=== PATIENT | male | born 1970 | race Caucasian/White ===

== ENCOUNTER 2019-10-10 15:33 | Inpatient (IN) ==
--- NOTE | 2019-10-10 15:55 | Emergency Department Note ---
History of Present Illness General Chief complaint: Abdominal Pain Stated complaint: SHARP PAIN IN ABD Time Seen by Provider: 10/10/19 15:45 Source: patient Limitations: no limitations History of Present Illness Provider complaint: Abdominal pain Onset (ago): day(s) Location: abdomen Radiation: non-radiation Severity: moderate Pain Consistency: + intermittent Maximum Pain Intensity: 4 Quality: + sharp Exacerbated By: + none Associated symptoms: + other (Stools are small and blonde in color); no chest pain, no cough, no fever/chills, no headaches, no nausea/vomiting and no shortness of breath This is a 48-year-old male with no significant past medical history other than appendectomy 4 years ago presenting with abdominal pain. The pain started 4 days ago. He describes it as sharp. It is located in the right lower quadrant without radiation. No alleviating or worsening factors. He did have a hamburger about an hour ago. He states that he went to his doctor's office and had a CT scan of the abdomen pelvis earlier today which was abnormal he was sent here for further evaluation. He did not have any blood work but did have a urine analysis which did show blood in it. He denies any urinary symptoms, fever, vomiting, chest pain, shortness of breath, cough or cold symptoms or known exposure COVID-19. His bowel movements have been blonde in color and small. He denies any black or bloody stools. He denies any history of inflammatory bowel disease. Home Medications Home Medications Medication Instructions Recorded Confirmed Type sumatriptan succinate 50 mg PO DIRECTED PRN 10/10/19 10/10/19 History Allergies Allergy/AdvReac Type Severity Reaction Status Date / Time Penicillins Allergy Intermediate rash Verified 10/10/19 16:26 Past Med/Surg History Medical History Hernia, abdominal Migraine Surgical History History of appendectomy With simultaneous umbilical hernia repair History of umbilical hernia repair Family History Father Cancer throat CA Other Diabetes No pertinent family history in first degree relatives Denies family history of Coronary heart disease Stroke Social History (Updated 10/10/19 @ 17:56 by Elissa Goel PA-C) Smoking Status: Former smoker Years Smoked: 20; Cigarettes Per Day: 10; Number of Years Since Quit: 4; Second Hand Exposure: Yes; Do You Dip or Chew Tobacco: No; Hx Alcohol Use: No Hx Substance Use: No Preferred Language: Ecuadorean Communication Ability: Effective Master Brewer Required: No Beliefs That Will Affect Care: None marital status: Current Living Situation: Spouse Other Information That Helps Us Care for You: No Feels Safe at Home: Yes Safety Concerns: Feels Safe At This Time Review of Systems See HPI for pertinent positives & negatives. and A total of 10 systems reviewed and were otherwise negative Physical Exam Vital Signs Vital Signs - 24 hr 10/10/19 15:39 10/10/19 16:16 10/10/19 16:28 Temperature 37.0 C Temperature Source Oral Oral Pulse Rate 90 86 80 Pulse Rate [Left Apical] 81 Pulse Rate from SpO2 Sensor 82 81 Pulse Rhythm Regular Pulse Strength Normal Respiratory Rate 16 17 17 Respiratory Effort / Characteristics Non-Labored Spontaneous Non-Labored Respiratory Depth Normal Normal Respiratory Pattern Regular Blood Pressure 135/83 137/86 Blood Pressure [Left Arm] 137/86 Blood Pressure Mean 100 101 Blood Pressure Mean [Left Arm] 103 Blood Pressure Position Sitting Pulse Oximetry 95 97 97 Oxygen Delivery Method Room Air Room Air Sepsis Recent Fever Within 48 Hours No Sepsis New/Unexplained Change in Mental Status No Sepsis Action Taken by Nursing No Action Required 10/10/19 16:30 10/10/19 16:31 10/10/19 17:00 Temperature Temperature Source Pulse Rate 84 81 87 Pulse Rate [Left Apical] Pulse Rate from SpO2 Sensor 84 82 85 Pulse Rhythm Pulse Strength Respiratory Rate 20 16 Respiratory Effort / Characteristics Respiratory Depth Respiratory Pattern Blood Pressure 149/82 H 139/93 Blood Pressure [Left Arm] Blood Pressure Mean 101 115 Blood Pressure Mean [Left Arm] Blood Pressure Position Pulse Oximetry 96 96 96 Oxygen Delivery Method Sepsis Recent Fever Within 48 Hours Sepsis New/Unexplained Change in Mental Status Sepsis Action Taken by Nursing Constitutional: Vital signs reviewed. Eyes: Pupils are equal round reactive to light. Conjunctiva are noninjected. ENT: Pharynx is clear without erythema or exudate. Mucous membranes are moist. Neck supple without meningeal signs. Respiratory: Clear to auscultation bilaterally. Breath sounds are equal bilaterally. Cardiovascular: Regular rate and rhythm. No rubs or gallops. GI: Soft, nondistended with tenderness in the right lower quadrant. No guarding. Bowel sounds are present. Musculoskeletal: No peripheral edema. No lower extremity tenderness. Integumentary: No cyanosis. or jaundice. Neurological: The patient is awake and alert. No focal deficits. Psychiatric: Normal affect. Not anxious appearing. Course Administered Medications Lactated Ringer's (Lr) 1,000 mls @ 125 mls/hr IV .Q8H SARAN Stop: 11/09/19 18:31 Last Admin: 10/10/19 18:53 Dose: 125 mls/hr Documented by: [id number] Discontinued Medications Sodium Chloride (Nss 1000ml) 1,000 mls @ 125 mls/hr IV .Q8H SARAN Stop: 11/09/19 16:14 Last Infusion: 10/10/19 19:04 Dose: 0 mls/hr Documented by: [id number] Admin: 10/10/19 16:28 Dose: 125 mls/hr Documented by: [id number] Ciprofloxacin (Cipro / D5w) 400 mg in 200 mls @ 100 mls/hr IV NOW STA; Protocol Stop: 10/10/19 18:04 Last Infusion: 10/10/19 18:52 Dose: 0 mls/hr Documented by: [id number] Admin: 10/10/19 16:25 Dose: 100 mls/hr Documented by: [id number] Metronidazole (Flagyl) 500 mg in 100 mls @ 100 mls/hr IV NOW STA Stop: 10/10/19 17:04 Last Infusion: 10/10/19 18:19 Dose: 0 mls/hr Documented by: [id number] Admin: 10/10/19 16:20 Dose: 100 mls/hr Documented by: [id number] Medical Decision Making Differential Diagnosis Ileitis, ischemic colitis, inflammatory bowel disease, abscess, adhesions Medical Records Attestation: I reviewed the patient's medical records. I did perform a limited focused review of portions of the patient's old chart on the electronic medical record. The patient underwent appendectomy and repair of umbilical hernia in 2014. CT of the abdomen pelvis performed today at [facility] shows "pericecal inflammatory changes with tiny fluid collection and stranding in the right pericolic gutter. Findings may be compatible with typhlitis. There is linear dense material appearing within the cecum as well as along the right pericolic gutters compatible with the use of Endo/JORDAN at the time of December 13, 2014 appendectomy and simultaneous umbilical hernia repair. However currently there is inflammatory stranding surrounding the cecum. Tiny fluid collection immediately inferior to the cecal wall within the area of inflammation. As there are no prior studies for comparison findings are assumed to be new active inflammation. Mild stranding extends below the level of the iliac bone into the pelvis. Stomach, small bowel, other parts of the colon including ileocecal valve are otherwise unremarkable." Home Medications Current Medication List: was personally reviewed by me Laboratory Data Attestation: I reviewed the patient's lab results. Result diagrams: 10/10/19 15:50 10/10/19 15:50 Lab Results 10/10/19 10/10/19 10/10/19 Range/Units 15:50 15:50 15:50 WBC 7.88 (4.8-10.8) K/uL RBC 5.11 (4.7-6.1) M/uL Hgb 14.8 (14.0-18.0) g/dL Hct 42.5 (42-52) % MCV 83.2 (80-100) fL MCH 29.0 (25-34) pg MCHC 34.8 (32-36) g/dL RDW Std Deviation 40.6 (36.4-46.3) fL RDW Coeff of Pauly 13.4 (11.5-14.5) % Plt Count 183 (130-400) K/uL MPV 12.2 H (7.4-10.4) fL Immature Gran % (Auto) 0.3 % Neut % (Auto) 67.7 % Lymph % (Auto) 24.0 % [place] % (Auto) 6.1 % Eos % (Auto) 1.5 % Baso % (Auto) 0.4 % Neut # (Auto) 5.34 (1.4-6.5) K/uL Lymph # (Auto) 1.89 (1.2-3.4) K/uL [place] # (Auto) 0.48 (0.11-0.59) K/uL Eos # (Auto) 0.12 (0-0.5) K/uL Baso # (Auto) 0.03 (0-0.2) K/uL Immature Gran # (Auto) 0.02 (0.00-0.02) K/uL Sodium 137 (136-145) mmol/L Potassium 3.5 (3.5-5.1) mmol/L Chloride 105 (98-107) mmol/L Carbon Dioxide 24 (21-32) mmol/L Anion Gap 8.0 (3-11) BUN 13 (7-18) mg/dl Creatinine 0.94 (0.6-1.4) mg/dl Est Cr Clr Drug Dosing 118.0 ml/min Est GFR ( Amer) 109.1 Est GFR (Non-Af Amer) 94.2 BUN/Creatinine Ratio 13.7 (10-20) Glucose 123 H (70-99) mg/dl Lactate 1.3 (0.4-2.0) mmol/L Calcium 8.8 (8.5-10.1) mg/dl Total Bilirubin 0.8 (0.2-1) mg/dl AST 17 (15-37) U/L ALT 31 (12-78) U/L Alkaline Phosphatase 118 H (45-117) U/L Total Protein 7.7 (6.4-8.2) gm/dl Albumin 3.8 (3.4-5.0) gm/dl Globulin 3.9 (2.5-4.0) gm/dl Albumin/Globulin Ratio 1.0 (0.9-2) Lipase 93 (73-393) U/L Blood Pressure Blood Pressure Findings: Elevated blood pressure Blood Pressure Disposition: Referred to patients primary care provider [facility] Narrative I did evaluate the patient as noted above. IV access was established. The patient was made n.p.o. I did treat him with normal saline IV and was given IV Cipro and Flagyl. I did order and review the patient's blood work as noted in the electronic medical record. His white count is not elevated. He is not neutropenic. He is not anemic. Electrolytes are unremarkable. Lactic acid is not elevated. I did discuss the case with Dr. Everett Garcia of surgery. He did not feel any surgical intervention was indicated at this time. He agreed with my plan for hospitalization and surgical consultation within the hospital. I did discuss the test results with the patient and his . I did discuss the case with the hospitalist and lead case manager. Impression & Plan Colitis Discharge Plan Visit Data Chief Complaint: Abdominal Pain Stated Complaint: SHARP PAIN IN ABD ED Provider: Praveen Storm Discharge Problem: Colitis Patient Disposition: Admitted As Inpatient Discharge Instructions Interventions: ED Discharge Assessment Last Done: 10/10/19 18:04
[2019-10-10] MEDS ORDERED: CIPROFLOXACIN / D5W 400 MG/200 ML BAG IV STA (16:05)
[2019-10-10] MEDS ORDERED: metroNIDAZOLE 500 MG/100 ML BAG IV STA (16:05)
[2019-10-10 16:06] LABS: Basophils # (auto) 0.03 K/uL (0-0.2); Basophils % (auto) 0.4 %; Eosinophils # (auto) 0.12 K/uL (0-0.5); Eosinophils % (auto) 1.5 %; Hematocrit (blood only) 42.5 % (42-52); Hemoglobin 14.8 g/dL (14.0-18.0); Immature Granulocytes # (auto) 0.02 K/uL (0.00-0.02); Immature Granulocytes % (auto) 0.3 %; Lymphocytes # (auto) 1.89 K/uL (1.2-3.4); Mean Corpuscular Hgb Conc 34.8 g/dL (32-36); Mean Corpuscular Volume 83.2 fL (80-100); Mean Platelet Volume 12.2 fL (7.4-10.4); Monocytes # (auto) 0.48 K/uL (0.11-0.59); Monocytes % (auto) 6.1 %; Neutrophils # (auto) 5.34 K/uL (1.4-6.5); Neutrophils % (auto) 67.7 %; Platelet Count 183 K/uL (130-400); RDW Coefficient of Variation 13.4 % (11.5-14.5); RDW Standard Deviation 40.6 fL (36.4-46.3); Red Blood Count 5.11 M/uL (4.7-6.1); White Blood Count 7.88 K/uL (4.8-10.8)
[2019-10-10] MEDS ORDERED: SODIUM CHLORIDE 0.9% 1000ML 1,000 ML IV SCH (16:15)
[2019-10-10 16:26] LABS: Albumin Level 3.8 gm/dl (3.4-5.0); BUN Creatinine Ratio 13.7 (10-20); Calcium 8.8 mg/dl (8.5-10.1); Est GFR (African American) 109.1; Est GFR (Non-African American) 94.2; Potassium 3.5 mmol/L (3.5-5.1)
[2019-10-10 16:28] LABS: Bilirubin,Total 0.8 mg/dl (0.2-1); Globulin 3.9 gm/dl (2.5-4.0); Total Protein 7.7 gm/dl (6.4-8.2)
--- NOTE | 2019-10-10 18:02 | History & Physical Report ---
Date of Service October 10, 2019 Assessment & Plan (1) Colitis: Mr. Harrington is a 48 year old M who has a significant PMH of migraines who presents to ED 2/2 to RLQ Abdominal pain x [address] Scan abd/pelvis done outpt reveals pericecal inflammatory changes with tiny fluid collection and stranding in the right pericolic gutter. Prior hx of appendectomy with simultaneous umbilical hernia repair in 2015. Denies prior history of autoimmune disease, cancer. No prior history of colonoscopy. C/o RLQ abd pain, but otherwise no fever, n/v/d. Does not meet criteria for Sepsis. LA WNL. Admit to medical Continue IV antibiotics with ciprofloxacin 400 every 12 and Flagyl 500 IV every 8h Clear liquid diet Consult general surgery -ED physician Dr. Storm spoke with Dr. Atkins who recommended conservative management with IV antibiotics Antiemetics and analgesia ordered (2) DVT prophylaxis: Lovenox SQ until ambulating adequately Disposition: admit to med/surg Follow up: PCP Dr. Rivas upon discharge Pt was seen and examined in collaboration with Dr. Parks, please see addendum History of Present Illness Chief Complaint: RLQ Abd Pain x 4 days. Primary Care Provider: Chuck Rivas MD This is a 48 year old M who has a significant PMH of migraines who presents to ED 2/2 to RLQ Abdominal pain x 4 days. Pain is located RLQ with radiation to RUQ, waxes and wanes, improved with rest, worse with movement, pain 3/10, tried nothing OTC to improve pain. Had 1 episode of diarrhea 2 days ago, but otherwise bowel habits have been normal. Typically has BM 3x daily before noon. Denies any f/c/s, dizziness, lightheaded, chest pain, syncope, cough, n/v, dysuria, increased urg/freq with urination. Has never had a colonoscopy. Was suppose to get cologuard in the mail, but has not yet received it. Denies hx of autoimmune disease. 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 Denies any recent tattoos. No hx of cancer. FH of +ca, throat CA in Father 2/2 to smoking. He use to smoke 1/2 ppd x 20 years and rare ETOH use. He was seen and evaluated in clinic today by Dr. Daniel and underwent CT abd/pelvis which revealed pericecal inflammatory changes with tiny fluid collection and stranding of the right colic gutter. Due to results he was referred to ED for surgical eval and IV antibiotics. ED provider discussed case with Dr. Atkins who recommended conservative management at this time with IV antibiotics. In ED pt remained hemodynamically stable. CBC and CMP were generally unremarkable. Lactic acid was 1.3. In ED he received IV antibiotics ciprofloxacin and Flagyl along with IVF. Allergies Allergy/AdvReac Type Severity Reaction Status Date / Time Penicillins Allergy Intermediate rash Verified 10/10/19 16:26 Home Medications Home Medications Medication Instructions Recorded Confirmed Type sumatriptan succinate 50 mg PO DIRECTED PRN 10/10/19 10/10/19 History Past Med/Surg History Medical History Hernia, abdominal Migraine Surgical History History of appendectomy With simultaneous umbilical hernia repair History of umbilical hernia repair Family History Father Cancer throat CA Other Diabetes No pertinent family history in first degree relatives Denies family history of Coronary heart disease Stroke Social History (Updated 10/10/19 @ 17:56 by Elissa Goel PA-C) Smoking Status: Former smoker Years Smoked: 20; Cigarettes Per Day: 10; Number of Years Since Quit: 4; Second Hand Exposure: Yes; Hx Alcohol Use: Yes Alcohol type: beer Alcohol Intake Frequency: Monthly or Less Hx Substance Use: No Preferred Language: Azeri marital status: Current Living Situation: Spouse Feels Safe at Home: Yes Review of Systems Review of Systems: All systems reviewed & are unremarkable except as noted in HPI & below Physical Exam Physical Exam: Constitutional: WD/WN, vitals as above, NAD, sitting up in bed, pleasant, conversing easily Head: Normocephalic, Atraumatic Eyes: PERRL, conjunctivae normal, anicteric sclerae ENMT: external ear and nose normal, oropharynx normal Neck: trachea midline, no thyromegaly normal visual inspection Respiratory: normal respiratory effort, lungs clear to auscultation, no wheeze, rales, rhonchi. Normal insp/exp effort, no accessory muscle use Cardiovascular: RRR, no murmur, no edema Vessels: no JVD or carotid bruit Chest: normal inspection of chest Abdomen: normal bowel sounds, soft, tender to palpation to right lower quadrant, no rebound, no guarding, no rigidity, ND, no hepatosplenomegaly Musculoskeletal: no cyanosis or clubbing, extremities motor strength 5/5 Skin: Multiple tattoos to bilateral upper extremities and posterior thorax, no rashes, warm and dry normal turgor Neurologic: PERRL, EOMI, accommodation nl, no face palsy, no dysarthria CN's II-XI intact bilaterally and moves all extremities Psychiatric: A+Ox3, euthymic affect Lymphatic: no cervical or axillary lymphadenopathy : deferred Results & Data Results & Data ([facility]) Vital Signs (Past 12 Hours) Vital Signs Temp Pulse Pulse Resp BP BP Pulse Ox 10/10/19 17:31 96 10/10/19 17:30 141/92 H 98 10/10/19 17:00 87 139/93 96 10/10/19 16:31 81 16 96 10/10/19 16:30 84 20 149/82 H 96 10/10/19 16:28 80 81 17 137/86 97 10/10/19 16:16 86 17 137/86 97 10/10/19 15:39 37.0 C 90 16 135/83 95 Laboratory Results Short CBC 10/10/19 Range/Units 15:50 WBC 7.88 (4.8-10.8) K/uL Hgb 14.8 (14.0-18.0) g/dL Hct 42.5 (42-52) % Plt Count 183 (130-400) K/uL BMP 10/10/19 15:50 Sodium 137 Potassium 3.5 Chloride 105 Carbon Dioxide 24 BUN 13 Creatinine 0.94 Glucose 123 H Calcium 8.8 Liver Function 10/10/19 Range/Units 15:50 Total Bilirubin 0.8 (0.2-1) mg/dl AST 17 (15-37) U/L ALT 31 (12-78) U/L Alkaline Phosphatase 118 H (45-117) U/L Albumin 3.8 (3.4-5.0) gm/dl Diagnostic Findings CT A/P: EXAM EXAM: CT ABD/PELVIS WO IV/ORAL CONTRAST DATE and TIME: 10/10/2019 2:00 pm HISTORY CLINICAL INFORMATION: right abd pain , kidney stone. History of laparoscopic appendectomy on 12/05/2014. Increasing pain and tenderness in right upper and lower quadrants. TECHNIQUE Oral Contrast: Oral contrast was not administered. IV Contrast: IV Contrast used COMPARISON No comparisons FINDINGS LOWER CHEST: HEART(visualized): Unremarkable LUNG BASES: Linear atelectasis in the lung bases. Bandlike atelectasis in the right middle lobe. ABDOMEN/PELVIS: LINES AND DEVICES: None LIVER: Unremarkable BILE DUCTS: Unremarkable GALLBLADDER: Unremarkable PANCREAS: Unremarkable SPLEEN: Unremarkable ADRENALS: Unremarkable KIDNEYS/URETERS: Unremarkable BLADDER: Unremarkable BOWEL: There is linear dense material appearing within the cecum as well as along the right pericolic gutter compatible with the use of Endo-JORDAN at the time of the December 13, 2014 appendectomy and simultaneous umbilical hernia repair. However, currently there is inflammatory stranding surrounding the cecum. Tiny fluid collection immediately inferior to the cecal wall within the area of inflammation. As there are no prior studies for comparison (appendectomy was performed at [facility]), findings are assumed to be new active inflammation. Mild stranding extends below the level of the iliac bone into the pelvis. Stomach, small bowel, and other parts of the colon including ileocecal valve are otherwise unremarkable. LYMPH NODES: Unremarkable VESSELS: Scattered calcific aortic vascular disease. REPRODUCTIVE ORGANS: Unremarkable PERITONEUM/RETROPERITONEUM: Stranding in the right pericolic gutter as above. ABDOMINAL WALL/SOFT TISSUES: Unremarkable BONES: Sclerotic sacroiliac joints. Schmorl's nodes. Minor endplate spurring. IMPRESSION IMPRESSION 1. Pericecal inflammatory changes with tiny fluid collection and stranding in the right pericolic gutter. Finding may be compatible with typhlitis. If outside CT abdomen and pelvis performed at the time of the 2015 appendectomy, it may be useful for comparison purposes. Surgical consult recommended. Medications Administered Sodium Chloride (Nss 1000ml) 1,000 mls @ 125 mls/hr IV .Q8H SARAN Stop: 11/09/19 16:14 Last Admin: 10/10/19 16:28 Dose: 125 mls/hr Documented by: [id number] Ciprofloxacin (Cipro / D5w) 400 mg in 200 mls @ 100 mls/hr IV NOW STA; Protocol Stop: 10/10/19 18:04 Last Admin: 10/10/19 16:25 Dose: 100 mls/hr Documented by: [id number] Discontinued Medications Metronidazole (Flagyl) 500 mg in 100 mls @ 100 mls/hr IV NOW STA Stop: 10/10/19 17:04 Last Admin: 10/10/19 16:20 Dose: 100 mls/hr Documented by: [id number] Code Status & VTE Plan Code Status Full Code VTE Prophylaxis Plan VTE Prophylaxis will be ordered: Yes Supervising Physician Co-Signing Physician Notes Attending addendum The patient was seen and examined in emergency room He has been complaining of right lower quadrant abdominal pain for the last 4 days The pain is worse with movement He does not have any progression of bowel habit with it, does not have any problem with urine and denies any fever and chills No abdominal distention and no nausea and or vomiting On examination Hemodynamically stable, afebrile Extremity of the abdomen-minimally distended, soft, tender in the right lower quadrant with guarding, rigidity and rebound tenderness Chest-clear His admission labs and imaging studies reviewed Has nonspecific inflammation/infection involving the cecum without any bowel obstruction and/or abscess formation Started with intravenous Cipro and Flagyl Surgery consulted Agree with assessment plan as outlined above by Jacy Parks
[2019-10-10] MEDS ORDERED: ACETAMINOPHEN 325 MG TAB PO PRN (18:32)
[2019-10-10] MEDS ORDERED: ONDANSETRON INJ 2 MG/ML 2 ML VIAL IV PRN (18:32)
[2019-10-10] MEDS: LACTATED RINGER'S 1,000 ML IV SCH (18:53)
--- NOTE | 2019-10-10 19:53 | Surgery Consultation ---
Date of Consultation October 10, 2019 Asked to see patient for evaluation of right lower quadrant pain This gentleman approximately 4 days ago experience right lower quadrant pain that time was incapacitating with one associated bout of diarrhea nonbloody the pain intensified to yesterday was quite significant although today it was progressively getting better was seen and had a CT scan of the abdomen which showed my conversation with Dr. Sami lorenzo The patient has had a previous appendectomy Denies any family history of gastrointestinal problem and he himself denies any problem other than what developed a few days ago What actually triggered this pain the patient does not recall he stated he awoke with the pain and denies any strain or trauma Assessment & Plan (1) Colitis: At this time I would recommend the patient to be kept on antibiotic possibly discharge him on Cipro and Flagyl tomorrow as gastrology to see him on this admission and they will decide whether or not to proceed with colonoscopy at this time or evaluate him later on In summary at this time the patient does not have an acute abdomen we will try to see the actual CT scan that was done at [facility] and we have no images of this at this time Present on Admission?: Yes History of Present Illness Attending Physician: Honey Parks MD Allergies Allergy/AdvReac Type Severity Reaction Status Date / Time Penicillins Allergy Intermediate rash Verified 10/10/19 16:26 Home Medications Home Medications Medication Instructions Recorded Confirmed Type sumatriptan succinate 50 mg PO DIRECTED PRN 10/10/19 10/10/19 History Patient History Medical History Hernia, abdominal Migraine Surgical History History of appendectomy With simultaneous umbilical hernia repair History of umbilical hernia repair Family History Father Cancer throat CA Other Diabetes No pertinent family history in first degree relatives Denies family history of Coronary heart disease Stroke Social History (Updated 10/10/19 @ 17:56 by Elissa Goel PA-C) Smoking Status: Former smoker Years Smoked: 20; Cigarettes Per Day: 10; Number of Years Since Quit: 4; Second Hand Exposure: Yes; Do You Dip or Chew Tobacco: No; Hx Alcohol Use: No Hx Substance Use: No Preferred Language: Vietnamese Communication Ability: Effective Plant Sciences Professor Required: No Beliefs That Will Affect Care: None marital status: Current Living Situation: Spouse Other Information That Helps Us Care for You: No Feels Safe at Home: Yes Safety Concerns: Feels Safe At This Time Physical Exam Physical Exam: Patient is alert coherent no distress tolerated his diet without any problem and actually feels quite well The abdomen soft nondistended nontender except a very localized point almost like McBurney's point but is very superficial and sensitive abdominal wall there is no hernia there from previous appendectomy since he has had a laparoscopic approach Results & Data ([facility]) Vital Signs (Past 12 Hours) Vital Signs Temp Pulse Pulse Resp BP BP Pulse Ox 10/10/19 18:36 36.5 C 76 16 134/82 96 10/10/19 17:31 96 10/10/19 17:30 141/92 H 98 10/10/19 17:00 87 139/93 96 10/10/19 16:31 81 16 96 10/10/19 16:30 84 20 149/82 H 96 10/10/19 16:28 80 81 17 137/86 97 10/10/19 16:16 86 17 137/86 97 10/10/19 15:39 37.0 C 90 16 135/83 95 PG Care Time/CCT Total # of Minutes Spent Total Time Spent with Patient: Total time spent is greater than 50% in coordination of care (as documented) at patient's floor/unit and/or counseling patient: Coding Level of Care Code 48682 Inpt Consult Level 4 Diagnoses Colitis K52.9
[2019-10-10] MEDS ORDERED: ENOXAPARIN INJ 40 MG/0.4 ML SYR SQ SCH (21:00)
[2019-10-10] MEDS: metroNIDAZOLE 500 MG/100 ML BAG IV SCH (23:38)
[2019-10-11] MEDS: LACTATED RINGER'S 1,000 ML IV SCH ×2 (03:00→11:17)
[2019-10-11] MEDS ORDERED: CIPROFLOXACIN / D5W 400 MG/200 ML BAG IV SCH (04:00)
[2019-10-11 07:49] LABS: Basophils # (auto) 0.05 K/uL (0-0.2); Basophils % (auto) 0.8 %; Eosinophils # (auto) 0.15 K/uL (0-0.5); Eosinophils % (auto) 2.5 %; Hematocrit (blood only) 41.6 % (42-52); Hemoglobin 14.3 g/dL (14.0-18.0); Immature Granulocytes # (auto) 0.01 K/uL (0.00-0.02); Immature Granulocytes % (auto) 0.2 %; Mean Corpuscular Hemoglobin 29.1 pg (25-34); Mean Corpuscular Hgb Conc 34.4 g/dL (32-36); Mean Corpuscular Volume 84.7 fL (80-100); Mean Platelet Volume 12.2 fL (7.4-10.4); Monocytes # (auto) 0.59 K/uL (0.11-0.59); Monocytes % (auto) 9.9 %; Neutrophils # (auto) 3.53 K/uL (1.4-6.5); Neutrophils % (auto) 59.6 %; Platelet Count 172 K/uL (130-400); RDW Coefficient of Variation 13.4 % (11.5-14.5); RDW Standard Deviation 41.7 fL (36.4-46.3); Red Blood Count 4.91 M/uL (4.7-6.1); White Blood Count 5.93 K/uL (4.8-10.8)
[2019-10-11] MEDS: metroNIDAZOLE 500 MG/100 ML BAG IV SCH (08:07)
[2019-10-11 08:15] LABS: Albumin Level 3.1 gm/dl (3.4-5.0); BUN Creatinine Ratio 9.9 (10-20); Calcium 8.8 mg/dl (8.5-10.1); Creatinine Clr Calc Pharmacy 114.4 ml/min; Est GFR (African American) 105.1; Est GFR (Non-African American) 90.7; Potassium 3.9 mmol/L (3.5-5.1)
[2019-10-11 08:18] LABS: Albumin Globulin Ratio 0.9 (0.9-2); Bilirubin,Total 0.9 mg/dl (0.2-1); Globulin 3.5 gm/dl (2.5-4.0); Total Protein 6.6 gm/dl (6.4-8.2)
--- NOTE | 2019-10-11 10:59 | Surgery Progress Note ---
Date of Service October 11, 2019 Assessment & Plan (1) Colitis: Patient here with colitis WBC 5.9 and patient afebrile Denies further bouts of diarrhea Still with some ttp in RLQ region Okay from our standpoint to complete a course of abx; can dispo on orals Would consider GI consultation to see if they would perform colonoscopy as inpt or outpt We have no plans for surgical intervention Pt seen and examined with Dr. Atkins Admission and Anticipated Discharge Date Admission Date: October 10, 2019 Subjective Patient states he is feeling good. Says each day that passes he is feeling better. Denies diarrhea. Physical Exam Physical Exam: awake/alert Gastrointestinal (Abdomen): Percussion/Palpation: + abdomen tender (ttp RLQ) and abdomen soft Results & Data ([facility]) Vital Signs (Past 12 Hours) Vital Signs Temp Pulse Resp BP Pulse Ox 10/11/19 07:27 36.6 C 63 18 119/76 98 10/10/19 23:06 36.7 C 69 20 134/80 95 PG Care Time/CCT Total # of Minutes Spent Total Time Spent with Patient: Total time spent is greater than 50% in coordination of care (as documented) at patient's floor/unit and/or counseling patient: Coding Level of Care Code 01489 Subseq Hosp Care Lvl 1 Diagnoses Colitis K52.9
--- NOTE | 2019-10-11 14:12 | Hospitalist Progress Note ---
Date of Service October 11, 2019 Assessment & Plan (1) Colitis: Mr. Harrington is a 48 year old M who has a significant PMH of migraines who presents to ED 2/2 to RLQ Abdominal pain x 4 days. Has nonspecific colitis involving pericecal area without any signs of obstruction and/or bleeding Appreciate surgery input and recommendation We will get a stool for C. difficile and culture Clinically a lot better today We will start oral Cipro and Flagyl and advance diet as tolerated Discussed with the GI service Will need colonoscopy as an outpatient after about 4 to 6 weeks If he has been feeling better this afternoon will be discharged home Imaging studies CT Scan abd/pelvis done outpt reveals pericecal inflammatory changes with tiny fluid collection and stranding in the right pericolic gutter. Prior hx of appendectomy with simultaneous umbilical hernia repair in 2014. Denies prior history of autoimmune disease, cancer. No prior history of colonoscopy. C/o RLQ abd pain, but otherwise no fever, n/v/d. Does not meet criteria for Sepsis. LA WNL. (2) DVT prophylaxis: Lovenox SQ until ambulating adequately Disposition: admit to med/surg Follow up: PCP Dr. Rivas upon discharge Admission and Anticipated Discharge Date Admission Date: October 10, 2019 Subjective 10/11/2019 He has been feeling a lot better today His pain in the right lower quadrant has decreased Denies any abdominal distention, fever, nausea and or vomiting Has been tolerating clears and will advance as tolerated Advised to ambulate more Review of Systems Review of Systems: All systems reviewed and are unremarkable except as noted below Gastrointestinal: + abdominal pain (Very minimal in right lower quadrant); no bloating, no nausea and no vomiting Physical Exam Physical Exam: Lying in bed comfortably Constitutional: well developed and well nourished; no acute distress and not ill appearing Eyes: PERRL, conjunctivae normal, anicteric sclerae ENMT: external ear and nose normal, oropharynx normal Neck: trachea midline, no thyromegaly Respiratory: normal respiratory effort; no respiratory distress Auscultation: lungs clear to auscultation bilaterally Cardiovascular: Rate/Rhythm: regular rate and regular rhythm Heart Sounds: no murmur Gastrointestinal (Abdomen): Inspection/Auscultation: abdomen normal to inspection and normal bowel sounds; abdomen not distended Percussion/Palpation: + abdomen tender (Minimally tender right lower quadrant wi thout guarding and/or rigidity) Musculoskeletal: No acute arthritis involving any joints Lymphatic: no cervical or axillary lymphadenopathy Results & Data Results & Data ([facility]) Vital Signs (Past 12 Hours) Vital Signs Temp Pulse Resp BP Pulse Ox 10/11/19 07:27 36.6 C 63 18 119/76 98 Laboratory Results Short CBC 10/10/19 10/11/19 Range/Units 15:50 07:28 WBC 7.88 5.93 (4.8-10.8) K/uL Hgb 14.8 14.3 (14.0-18.0) g/dL Hct 42.5 41.6 L (42-52) % Plt Count 183 172 (130-400) K/uL BMP 10/10/19 10/11/19 15:50 07:28 Sodium 137 139 Potassium 3.5 3.9 Chloride 105 104 Carbon Dioxide 24 29 BUN 13 10 Creatinine 0.94 0.97 Glucose 123 H 112 H Calcium 8.8 8.8 Liver Function 10/10/19 10/11/19 Range/Units 15:50 07:28 Total Bilirubin 0.8 0.9 (0.2-1) mg/dl AST 17 16 (15-37) U/L ALT 31 25 (12-78) U/L Alkaline Phosphatase 118 H 103 (45-117) U/L Albumin 3.8 3.1 L (3.4-5.0) gm/dl Medications Administered Current Inpatient Medications Acetaminophen (Acetaminophen 325 Mg Tab) 650 mg PO Q4H PRN PRN Reason: pain/fever Stop: 11/09/19 18:31 Ciprofloxacin (Ciprofloxacin 500 Mg Tab) 500 mg PO BID [facility]; Protocol Stop: 10/20/19 20:59 Enoxaparin Sodium (Enoxaparin Inj 40 Mg/0.4 Ml Syr) 40 mg SQ Q24H [facility] Stop: 11/09/19 20:59 Last Admin: 10/10/19 20:43 Dose: Not Given Documented by: Lactated Ringer's (Lr) 1,000 mls @ 125 mls/hr IV .Q8H [facility] Stop: 11/09/19 18:31 Last Admin: 10/11/19 11:17 Dose: 125 mls/hr Documented by: Metronidazole (Metronidazole 500 Mg Tab) 500 mg PO BID [facility]; Protocol Stop: 09/03/20 20:59 Ondansetron HCl (Ondansetron Inj 2 Mg/Ml 2 Ml Vial) 4 mg IV Q6H PRN PRN Reason: Nausea Stop: 11/09/19 18:31
[2019-10-11] MEDS ORDERED: CIPROFLOXACIN 500 MG TAB PO SCH (18:00)
--- NOTE | 2019-10-11 18:05 | Discharge Summary ---
Date of Service October 11, 2019 Admission HPI Per Admitting Provider This is a 48 year old M who has a significant PMH of migraines who presents to ED 2/2 to RLQ Abdominal pain x 4 days. Pain is located RLQ with radiation to RUQ, waxes and wanes, improved with rest, worse with movement, pain 3/10, tried nothing OTC to improve pain. Had 1 episode of diarrhea 2 days ago, but otherwise bowel habits have been normal. Typically has BM 3x daily before noon. Denies any f/c/s, dizziness, lightheaded, chest pain, syncope, cough, n/v, dysuria, increased urg/freq with urination. Has never had a colonoscopy. Was suppose to get cologuard in the mail, but has not yet received it. Denies hx of autoimmune disease. 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 Denies any recent tattoos. No hx of cancer. FH of +ca, throat CA in Father 2/2 to smoking. He use to smoke 1/2 ppd x 20 years and rare ETOH use. He was seen and evaluated in clinic today by Dr. Sanchez and underwent CT abd/pelvis which revealed pericecal inflammatory changes with tiny fluid collection and stranding of the right colic gutter. Due to results he was referred to ED for surgical eval and IV antibiotics. ED provider discussed case with Dr. Atkins who recommended conservative management at this time with IV antibiotics. In ED pt remained hemodynamically stable. CBC and CMP were generally unremarkable. Lactic acid was 1.3. In ED he received IV antibiotics ciprofloxacin and Flagyl along with IVF. Admission Exam Per Admitting Provider Physical Exam: Constitutional: WD/WN, vitals as above, NAD, sitting up in bed, pleasant, conversing easily Head: Normocephalic, Atraumatic Eyes: PERRL, conjunctivae normal, anicteric sclerae ENMT: external ear and nose normal, oropharynx normal Neck: trachea midline, no thyromegaly normal visual inspection Respiratory: normal respiratory effort, lungs clear to auscultation, no wheeze, rales, rhonchi. Normal insp/exp effort, no accessory muscle use Cardiovascular: RRR, no murmur, no edema Vessels: no JVD or carotid bruit Chest: normal inspection of chest Abdomen: normal bowel sounds, soft, tender to palpation to right lower quadrant, no rebound, no guarding, no rigidity, ND, no hepatosplenomegaly Musculoskeletal: no cyanosis or clubbing, extremities motor strength 5/5 Skin: Multiple tattoos to bilateral upper extremities and posterior thorax, no rashes, warm and dry normal turgor Neurologic: PERRL, EOMI, accommodation nl, no face palsy, no dysarthria CN's II-XI intact bilaterally and moves all extremities Psychiatric: A+Ox3, euthymic affect Lymphatic: no cervical or axillary lymphadenopathy : deferred Principal Diagnosis Pericecal nonspecific colitis Discharge Exam Constitutional well developed and well nourished; no acute distress and not ill appearing Eyes PERRL, conjunctivae normal, anicteric sclerae ENMT external ear and nose normal, oropharynx normal Neck trachea midline, no thyromegaly Respiratory normal respiratory effort; no respiratory distress Auscultation: lungs clear to auscultation bilaterally Cardiovascular Rate/Rhythm: regular rate and regular rhythm Heart Sounds: no murmur Gastrointestinal (Abdomen) Inspection/Auscultation: abdomen normal to inspection and normal bowel sounds; abdomen not distended Percussion/Palpation: + abdomen tender (Minimally tender right lower quadrant without guarding and/or rigidity) Lymphatic no cervical or axillary lymphadenopathy Discharge Data Allergies Allergy/AdvReac Type Severity Reaction Status Date / Time Penicillins Allergy Intermediate rash Verified 10/10/19 16:26 Consultations 10/10/19 17:07 ED Decision to Admit Stat 10/10/19 17:17 Consult General Surgery Routine Total Time Total Time Spent Total Time Spent (In Minutes): 35 minutes Total Time Includes: Examination of the Patient, Discharge Planning, Medication Reconciliation and Communication With Other Providers Discharge Plan Discharge Items Patient Disposition: Home - Self-Care Reason For Visit: PERICECAL INFLAMMATORY CHANGES Discharge Diagnosis: Pericecal nonspecific colitis Condition on Discharge: Good Activity: Resume your previous activity Non-emergency contact: Primary Care Provider Call non-emergency contact if: you have any medication questions and your symptoms worsen Follow-up/Referrals: Chuck Rivas MD [Primary Care Provider] - Diet: Regular Addtl Attending Provider Instructions: Drink more fluid Pending Studies at Discharge: No Stand-Alone Forms: My hereO, Smoking Cessation Medications and DC Order Prescriptions: New ciprofloxacin HCl 500 mg Tablet 500 mg PO BID Qty: 16 RF: 0 metronidazole 500 mg Tablet 500 mg PO BID Qty: 16 RF: 0 Lactinex 1 million cell tablet,chewable 1 tab PO BID Qty: 30 RF: 0 Continued sumatriptan succinate 50 mg tablet 50 mg PO DIRECTED PRN (Reason: Migraine Headache) RF: 0 Discharge Orders: Discharge Order (Routine); Ordered 10/11/19 Ordered By: Honey Parks Admission Data Admit Date/Time: 10/10/19 17:17 Attending Provider: Honey Parks Admit Provider: Honey Parks Primary Care Provider: Chuck Rivas Other Providers: Honey Parks ; Be Atkins Other Interventions: Discharge Summary Assessment (RN) Last Done: 10/11/19 15:45
[2019-10-11] MEDS ORDERED: metroNIDAZOLE 500 MG TAB PO SCH (21:00)
== END 2019-10-11 15:52 | disposition home or self-care (01) | DRG 392 ==
LOC: ED 15:33 → 2N 17:17